=== PATIENT | male | born 1990 | race Caucasian/White ===

== ENCOUNTER 2019-09-14 09:17 | Emergency (ER) | payer OTHER, SELFPAY ==
[2019-09-14 09:32] VITALS: BP 128/73; PULSE 84; RESP 16; TEMP 37.1; O2SAT 100
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
== END 2019-09-14 09:45 | disposition home or self-care (01) ==
PROVIDERS: Emergency Provider Emergency Medicine
DX: J10.1 Influenza due to other identified influenza virus with other respiratory manifestations (principal); J45.909 Unspecified asthma, uncomplicated; K21.9 Gastro-esophageal reflux disease without esophagitis; I10 Essential (primary) hypertension
CPT/HCPCS: 87804; 99213; G0463

== ENCOUNTER 2019-09-22 10:08 | Emergency (ER) | payer OTHER, SELFPAY ==
--- NOTE | ~2019-09-22 | XR_ITS ---
EXAMINATION: XR chest 2V DATE: 09/22/2019 11:24 INDICATION: Smoker presenting with 2 weeks of productive cough TECHNIQUE: PA and lateral views of the chest were obtained. COMPARISON: Chest radiograph dated 07/17/2018 FINDINGS: Multiple scattered tiny calcified granulomata in both lungs, more numerous on the right. No other air space opacities, pulmonary edema, pleural effusion or pneumothorax. The cardiomediastinal silhouette is normal. Visualized bones and soft tissues are unremarkable. IMPRESSION: 1. No acute cardiopulmonary disease. Reviewed, dictated and finalized at location A. [employer] ARCH[employer]
[2019-09-22 10:26] VITALS: BP 146/91; PULSE 64; RESP 20; TEMP 36.4; O2SAT 99
[2019-09-22 10:32] VITALS: PULSE 64; RESP 20; O2SAT 99
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
[2019-09-22] MEDS: ALBUTEROL SULFATE NEB 2.5 MG/3 ML INH INHALATION (11:26)
[2019-09-22] MEDS: IPRATROPIUM BR 0.02% INH SOLN 0.5 MG/2.5 ML VIAL INHALATION (11:27)
[2019-09-22 12:16] VITALS: PULSE 80; RESP 16; O2SAT 98
== END 2019-09-22 12:16 | disposition home or self-care (01) ==
PROVIDERS: Emergency Provider Nurse Practitioner
DX: J45.21 Mild intermittent asthma with (acute) exacerbation (principal); R03.0 Elevated blood-pressure reading, without diagnosis of hypertension; F17.200 Nicotine dependence, unspecified, uncomplicated; K21.9 Gastro-esophageal reflux disease without esophagitis; I10 Essential (primary) hypertension
CPT/HCPCS: 71046; 94640; 99213; G0463

== ENCOUNTER 2019-10-05 18:57 | Emergency (ER) | payer OTHER, SELFPAY ==
--- NOTE | ~2019-10-05 | CT_ITS ---
EXAMINATION: CT abdomen pelvis wo con DATE: 10/05/2019 19:53 INDICATION: Renal stone presenting with right low back pain and hematuria TECHNIQUE: Computed tomography (CT) of the abdomen and pelvis was performed without intravenous contr ast. Automated exposure control and iterative reconstruction technique were employed. The dose-length product was 383.91 mGy-cm. COMPARISON: 06/25/2012 FINDINGS: A few unchanged small calcified and noncalcified granulomata in the bilateral lower lobes along with a few small splenic calcification as are all consistent with old granulomatous disease. Visualized in ferior heart is normal. No pericardial or pleural effusion. Gallbladder not visualized and likely alok gically absent. Liver, pancreas and bilateral adrenal glands are normal. Kidneys and ureters are norm al with no urolithiasis, hydroureteronephrosis or perinephric/ureteral stranding. Bowels including th e appendix are normal. Bladder is normal. No free intraperitoneal gas or fluid. No pathologically enl arged abdominal or pelvic lymphadenopathy. Mild lumbar spondylosis. IMPRESSION: 1. No acute intra-abdominal/pelvic process with normal appendix and no urolithiasis. Reviewed, dictated and finalized at location A. INE [employer]PER IMPRESSION: 1. No acute intra-abdominal/pelvic process with normal appendix and no urolithi asis.
[2019-10-05 19:06] VITALS: BP 156/104; PULSE 54; RESP 17; TEMP 36.7; O2SAT 99
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
[2019-10-05 19:23] LABS: Basophils Absolute Auto 0.1 K/mm3 (0.0-0.1); Basophils Percent Auto 0.5 % (0.2-1.2); Eosinophils Absolute Auto 0.4 K/mm3 (0-0.3); Eosinophils Percent Auto 2.7 % (0-4.4); Hematocrit 41.1 % (42.0-52.0); Hemoglobin 14.2 g/dL (14.0-18.0); Immature Granulocyte Absolute 0.05 K/mm3 (0.00-0.031); Immature Granulocyte Percent A 0.4 % (0-0.5); Lymphocytes Absolute Auto 4.59 K/mm3 (0.9-3.2); Lymphocytes Percent Auto 33.1 % (18.3-44.2); Mean Corpuscular HGB Conc 34.5 g/dl (32-36); Mean Corpuscular Hemoglobin 30.4 pg (26-34); Mean Platelet Volume 10.2 fl (7.4-10.4); Monocytes Absolute Auto 1.3 K/mm3 (0.1-0.6); Monocytes Percent Auto 9.1 % (2.6-8.5); Neutrophils Absolute Auto 7.5 K/mm3 (1.3-6.7); Neutrophils Percent Auto 54.2 % (45.5-73.1); Platelet Count Result 314 k/mm3 (150-375); Red Blood Count 4.67 M/mm3 (4.6-6.20); Red Cell Distribution Width 12.3 % (11.5-14.5); White Blood Count 13.9 K/mm3 (4.5-10.0)
[2019-10-05] MEDS: KETOROLAC 30 MG/ML VIAL (*BKC) IV PUSH (19:24)
[2019-10-05] MEDS: ONDANSETRON INJ 4 MG/2 ML VIAL IV PUSH (19:24)
[2019-10-05] MEDS: LACTATED RINGERS 1,000 ML 999 ML IV CONT (19:25)
[2019-10-05 19:42] LABS: Blood Urea Nitrogen 15 mg/dL (9-20); Calcium 9.5 mg/dL (8.4-10.2); Carbon Dioxide 22 mmol/L (22-30); Chloride 103 mmol/L (98-107); Estimated Glomerular Filt Rate > 60; Glucose 91 mg/dL (75-110); Potassium 3.8 mmol/L (3.4-5.0); Sodium 140 mmol/L (137-145)
--- NOTE | 2019-10-05 20:01 | PC.NURSE ---
Called lab to add on Lipase and Hepatic
[2019-10-05] MEDS: MORPHINE SULFATE 4 MG/ML INJ IV PUSH (20:07)
[2019-10-05 20:11] LABS: Alanine Aminotransferase 41 U/L (4-50); Albumin Level 4.9 g/dL (3.5-5.1); Alkaline Phosphatase 60 U/L (38-126); Aspartate Amino Transferase 39 U/L (17-59); Bilirubin,Total 0.6 mg/dL (0.2-1.3); Lipase 318 U/L (23-300)
[2019-10-05 20:18] LABS: Add Urine Microscopic? YES; Appearance Urine Clear (Clear); Bacteria Urine Trace /hpf; Bilirubin Urine Negative (Negative); Blood Urine Negative (Negative); Color Urine Amber (Yellow); Glucose Urine UA Negative (Negative); Ketones Urine Trace mg/dL (Negative); Leukocyte Esterase Ur Negative LEU/UL (Negative); Mucus Urine Few /lpf; Nitrate Urine Negative (Negative); Protein Urine 1+ mg/dL (Negative); Specific Grav Ur 1.031 (1.001-1.035); WBC Urine 0-3 /hpf
--- NOTE | 2019-10-05 20:55 | PC.NURSE ---
Called lab to add on D-Dimer
[2019-10-05 21:19] LABS: D Dimer 0.27 ug/mL (<0.48)
[2019-10-05 22:08] VITALS: BP 138/77; PULSE 88; RESP 18; O2SAT 98
--- NOTE | 2019-10-12 19:24 | PC.NURSE ---
LATE ENTRY This note is being entered to document information to the patient's record. The following information was omitted on [10/05/19], by [Shelton]. 1L LR finished infusing at 20:20.
== END 2019-10-05 22:27 | disposition home or self-care (01) ==
PROVIDERS: Emergency Medicine; Emergency Provider Emergency Medicine
DX: M54.5 Low back pain (principal); J45.909 Unspecified asthma, uncomplicated; K21.9 Gastro-esophageal reflux disease without esophagitis; I10 Essential (primary) hypertension; Z87.442 Personal history of urinary calculi; F17.290 Nicotine dependence, other tobacco product, uncomplicated; G89.29 Other chronic pain
CPT/HCPCS: 36415; 74176; 80048; 80076; 81001; 83690; 85025; 85380; 96361; 96374; 96375; 99284; J1885; J2270; J2405; J7120

== ENCOUNTER 2019-10-15 18:36 | Emergency (ER) | payer OTHER, SELFPAY ==
[2019-10-15 18:41] VITALS: BP 117/68; PULSE 100; RESP 20; TEMP 37.3; O2SAT 99
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
== END 2019-10-15 19:03 | disposition home or self-care (01) ==
PROVIDERS: Emergency Provider Nurse Practitioner
DX: J02.8 Acute pharyngitis due to other specified organisms (principal); J06.9 Acute upper respiratory infection, unspecified; F17.200 Nicotine dependence, unspecified, uncomplicated; J45.909 Unspecified asthma, uncomplicated; K21.9 Gastro-esophageal reflux disease without esophagitis; I10 Essential (primary) hypertension
CPT/HCPCS: 87081; 87880; 99213; G0463

== ENCOUNTER 2019-10-16 10:32 | Emergency (ER) | payer OTHER, SELFPAY ==
[2019-10-16 10:47] VITALS: BP 131/77; PULSE 95; RESP 17; TEMP 37.7; O2SAT 100
[2019-10-16 10:49] VITALS: O2SAT 100
[2019-10-16] MEDS: ALBUTEROL SULFATE NEB 2.5 MG/0.5 ML INH 5 MG INHALATION (11:05)
[2019-10-16] MEDS: IPRATROPIUM BR 0.02% INH SOLN 0.5 MG/2.5 ML VIAL INHALATION (11:05)
[2019-10-16 11:07] VITALS: PULSE 84; RESP 18
[2019-10-16 11:12] VITALS: PULSE 91; RESP 18
[2019-10-16] MEDS: IBUPROFEN 600 MG TABLET PO (11:24)
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
== END 2019-10-16 11:56 | disposition home or self-care (01) ==
PROVIDERS: Emergency Provider Emergency Medicine
DX: J10.1 Influenza due to other identified influenza virus with other respiratory manifestations (principal); F41.9 Anxiety disorder, unspecified; J45.909 Unspecified asthma, uncomplicated; F31.9 Bipolar disorder, unspecified; K21.9 Gastro-esophageal reflux disease without esophagitis; G40.909 Epilepsy, unspecified, not intractable, without status epilepticus
CPT/HCPCS: 87081; 87804; 87880; 94640; 99283; A9270

== ENCOUNTER 2020-01-14 19:17 | Emergency (ER) | payer SELFPAY ==
[2020-01-14 19:19] VITALS: BP 130/74; PULSE 82; RESP 19; TEMP 37.1; O2SAT 100
== END 2020-01-14 20:34 | disposition left against medical advice (07) ==
LOC: ANHED 20:45
DX: L29.9 Pruritus, unspecified (principal)
CPT/HCPCS: 99199

== ENCOUNTER 2020-01-20 05:24 | Emergency (ER) | payer OTHER, SELFPAY ==
[2020-01-20] VITALS (7 sets, daily range): BP systolic 132–167; BP diastolic 54–87; PULSE 66–82; RESP 12–18; TEMP 36.7; O2SAT 98–100
--- NOTE | ~2020-01-20 | XR_ITS ---
EXAMINATION: XR chest 1V portable DATE: 01/20/2020 06:06 INDICATION: Chest pressure. Shortness of breath. TECHNIQUE: A single frontal view of the chest was obtained. COMPARISON: Chest 2 views 09/22/2019, CT abdomen and pelvis 10/05/2019 FINDINGS: Scattered calcified pulmonary nodules are consistent with old granulomatous disease. No ple ural effusion or pneumothorax. The heart size is normal. IMPRESSION: 1. No acute cardiopulmonary disease. Reviewed, dictated and finalized at location A.
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
[2020-01-20 05:50] LABS: Basophils Absolute Auto 0.1 K/mm3 (0.0-0.1); Basophils Percent Auto 1.2 % (0.2-1.2); Eosinophils Absolute Auto 0.6 K/mm3 (0-0.3); Eosinophils Percent Auto 5.4 % (0-4.4); Hematocrit 47.4 % (42.0-52.0); Hemoglobin 16.3 g/dL (14.0-18.0); Immature Granulocyte Absolute 0.05 K/mm3 (0.00-0.031); Immature Granulocyte Percent A 0.4 % (0-0.5); Lymphocytes Absolute Auto 5.41 K/mm3 (0.9-3.2); Lymphocytes Percent Auto 46.2 % (18.3-44.2); Mean Corpuscular HGB Conc 34.4 g/dl (32-36); Mean Corpuscular Hemoglobin 30.1 pg (26-34); Mean Corpuscular Volume 87.6 fl (80-100); Mean Platelet Volume 9.6 fl (7.4-10.4); Monocytes Absolute Auto 1.2 K/mm3 (0.1-0.6); Monocytes Percent Auto 10.5 % (2.6-8.5); Neutrophils Absolute Auto 4.3 K/mm3 (1.3-6.7); Neutrophils Percent Auto 36.3 % (45.5-73.1); Platelet Count Result 365 k/mm3 (150-375); Red Blood Count 5.41 M/mm3 (4.6-6.20); Red Cell Distribution Width 12.5 % (11.5-14.5); White Blood Count 11.7 K/mm3 (4.5-10.0)
[2020-01-20 06:00] LABS: INR 0.9; Prothrombin Time 12.1 Seconds (11.1-14.7)
[2020-01-20 06:01] LABS: Partial Thromboplastin Time 25.9 SECONDS (22.3-36.8)
[2020-01-20 06:14] LABS: D Dimer 0.27 ug/mL (<0.48)
[2020-01-20 06:56] LABS: Blood Urea Nitrogen 15 mg/dL (9-20); Calcium 9.4 mg/dL (8.4-10.2); Carbon Dioxide 27 mmol/L (22-30); Chloride 106 mmol/L (98-107); Estimated Glomerular Filt Rate > 60; Glucose 109 mg/dL (75-110); Potassium 4.1 mmol/L (3.4-5.0); Sodium 139 mmol/L (137-145)
[2020-01-20 07:08] LABS: Troponin I < 0.012 ng/mL (0.000-0.034)
[2020-01-20 07:58] LABS: Amphetamine Screen Urine Positive (Negative); Barbiturate Screen Urine Negative (Negative); Benzodiazepines Screen Urine Negative (Negative); Cannabinoid Screen Urine Positive (Negative); Cocaine Screen Urine Negative (Negative); Methadone Screen Urine Negative (Negative); Opiate Screen Urine Negative (Negative); Phencyclidine Screen Urine Negative (Negative)
[2020-01-20] MEDS: TRAMADOL HCL 50 MG TABLET PO (08:27)
[2020-01-20 09:13] LABS: Troponin I < 0.012 ng/mL (0.000-0.034)
--- NOTE | 2020-01-20 10:01 | ECG_ITS ---
Measurements Intervals [place] Rate: 85 P: -1 SC: 125 QRS: -13 QRSD: 116 T: 9 QT: 378 QTc: 450 Interpretive Statements SINUS RHYTHM WITH MARKED SINUS ARRHYTHMIA INTRAVENTRICULAR CONDUCTION DELAY BORDERLINE T WAVE ABNORMALITY- INFERIOR LEADS BASELINE ARTIFACT- I, II, III, AVR, AVF, V2 BORDERLINE ECG Electronically Signed On 01-20-2020 10:10:38 CDT by Homero Chacon D.O.
== END 2020-01-20 10:39 | disposition home or self-care (01) ==
PROVIDERS: Emergency Medicine; Emergency Provider Emergency Medicine
DX: R07.89 Other chest pain (principal); F15.90 Other stimulant use, unspecified, uncomplicated; K21.9 Gastro-esophageal reflux disease without esophagitis; I10 Essential (primary) hypertension; Z87.442 Personal history of urinary calculi; F17.290 Nicotine dependence, other tobacco product, uncomplicated; I45.9 Conduction disorder, unspecified; R94.31 Abnormal electrocardiogram [ECG] [EKG]; J45.909 Unspecified asthma, uncomplicated
CPT/HCPCS: 36415; 71045; 80048; 80307; 84484; 85025; 85380; 85610; 85730; 93005; 99284; A9270

== ENCOUNTER 2020-02-05 19:29 | Emergency (ER) | payer OTHER, SELFPAY ==
[2020-02-05 19:32] VITALS: BP 133/83; PULSE 117; RESP 16; O2SAT 16
[2020-02-05] MEDS: SODIUM CHLORIDE 0.9% IV 1,000 ML 999 ML IV CONT (19:56)
[2020-02-05 20:05] LABS: Basophils Absolute Auto 0.1 K/mm3 (0.0-0.1); Basophils Percent Auto 0.8 % (0.2-1.2); Eosinophils Absolute Auto 0.3 K/mm3 (0-0.3); Eosinophils Percent Auto 2.4 % (0-4.4); Hemoglobin 17.1 g/dL (14.0-18.0); Immature Granulocyte Absolute 0.07 K/mm3 (0.00-0.031); Immature Granulocyte Percent A 0.5 % (0-0.5); Lymphocytes Percent Auto 39.1 % (18.3-44.2); Mean Corpuscular HGB Conc 35.6 g/dl (32-36); Mean Corpuscular Hemoglobin 30.4 pg (26-34); Mean Corpuscular Volume 85.4 fl (80-100); Mean Platelet Volume 9.8 fl (7.4-10.4); Monocytes Absolute Auto 0.8 K/mm3 (0.1-0.6); Monocytes Percent Auto 6.2 % (2.6-8.5); Neutrophils Absolute Auto 6.9 K/mm3 (1.3-6.7); Platelet Count Result 393 k/mm3 (150-375); Red Blood Count 5.62 M/mm3 (4.6-6.20); Red Cell Distribution Width 12.3 % (11.5-14.5); White Blood Count 13.6 K/mm3 (4.5-10.0)
[2020-02-05 20:16] LABS: Partial Thromboplastin Time 24.4 SECONDS (22.3-36.8); Prothrombin Time 12.6 Seconds (11.1-14.7)
[2020-02-05 20:17] LABS: Alanine Aminotransferase 27 U/L (4-50); Albumin Level 5.3 g/dL (3.5-5.1); Alkaline Phosphatase 66 U/L (38-126); Aspartate Amino Transferase 30 U/L (17-59); Bilirubin,Total 0.5 mg/dL (0.2-1.3); Blood Urea Nitrogen 11 mg/dL (9-20); Calcium 10.5 mg/dL (8.4-10.2); Carbon Dioxide 24 mmol/L (22-30); Chloride 100 mmol/L (98-107); Estimated Glomerular Filt Rate > 60; Glucose 105 mg/dL (75-110); Lipase 130 U/L (23-300); Potassium 3.5 mmol/L (3.4-5.0); Sodium 138 mmol/L (137-145)
[2020-02-05 20:21] LABS: D Dimer 0.27 ug/mL (<0.48)
[2020-02-05 20:29] LABS: Troponin I < 0.012 ng/mL (0.000-0.034)
[2020-02-05 20:33] VITALS: BP 129/63; PULSE 79; RESP 18
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
[2020-02-05 20:56] LABS: Amphetamine Screen Urine Negative (Negative); Barbiturate Screen Urine Negative (Negative); Benzodiazepines Screen Urine Negative (Negative); Cannabinoid Screen Urine Positive (Negative); Cocaine Screen Urine Negative (Negative); Methadone Screen Urine Negative (Negative); Opiate Screen Urine Negative (Negative); Phencyclidine Screen Urine Negative (Negative)
[2020-02-05 21:33] VITALS: BP 138/97; PULSE 69; RESP 18; O2SAT 99
[2020-02-05 22:40] LABS: Troponin I < 0.012 ng/mL (0.000-0.034)
[2020-02-05 23:40] VITALS: BP 124/74; PULSE 74; RESP 19; TEMP 36.8; O2SAT 100
== END 2020-02-05 23:41 | disposition home or self-care (01) ==
PROVIDERS: Emergency Medicine Emergency Medical Services; Emergency Provider Emergency Medicine; PCP Physician Assistant
DX: R00.2 Palpitations (principal); J45.909 Unspecified asthma, uncomplicated; K21.9 Gastro-esophageal reflux disease without esophagitis; Z87.442 Personal history of urinary calculi; F17.290 Nicotine dependence, other tobacco product, uncomplicated; I47.2 Ventricular tachycardia; I10 Essential (primary) hypertension
CPT/HCPCS: 36415; 80053; 80307; 83690; 84484; 85025; 85380; 85610; 85730; 96360; 99284; J7030

== ENCOUNTER 2020-04-27 09:12 | Emergency (ER) | payer OTHER, SELFPAY ==
--- NOTE | ~2020-04-27 | XR_ITS ---
EXAMINATION: XR chest 2V 04/27/2020 09:40 INDICATION: Cough, shortness of breath and wheezing PROCEDURE: 2 view chest COMPARISON: No prior studies for comparison. FINDINGS: The lungs are clear. The cardiomediastinal silhouette is within normal limits. There are no pleural effusions. There is no pneumothorax suspected. IMPRESSION: 1: NO ACUTE CARDIOPULMONARY DISEASE. Reviewed, dictated and finalized at location A.
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
[2020-04-27 09:20] VITALS: BP 130/74; PULSE 50; RESP 16; TEMP 36.5; O2SAT 100
[2020-04-27] MEDS: ALBUTEROL SULFATE NEB 2.5 MG/3 ML INH INHALATION (09:39)
[2020-04-27] MEDS: IPRATROPIUM BR 0.02% INH SOLN 0.5 MG/2.5 ML VIAL INHALATION (09:39)
[2020-04-27 09:40] VITALS: PULSE 50; RESP 16; O2SAT 100
[2020-04-27 10:03] VITALS: PULSE 60; RESP 16; O2SAT 100
== END 2020-04-27 10:13 | disposition home or self-care (01) ==
PROVIDERS: Emergency Provider Nurse Practitioner Family; PCP Physician Assistant
DX: J45.901 Unspecified asthma with (acute) exacerbation (principal); F17.200 Nicotine dependence, unspecified, uncomplicated; K21.9 Gastro-esophageal reflux disease without esophagitis; I10 Essential (primary) hypertension
CPT/HCPCS: 71046; 87081; 87804; 87880; 94640; 99213; G0463

== ENCOUNTER 2020-08-26 15:29 | Observation (INO) | payer OTHER, SELFPAY ==
--- NOTE | ~2020-08-26 | MR_ITS ---
EXAMINATION: MR brain/brain stem wo/w con DATE: 08/27/2020 10:32 INDICATION: Anisocoria with dilated right pupil. TECHNIQUE: Magnetic resonance imaging (MRI) of the brain and brainstem was performed without and with 20 mL MultiHance intravenous contrast. Sequences included sagittal and axial T1-weighted FSE, axial diffusion-weighted FS EPI, axial T2*-weighted GRE, axial T2-weighted FLAIR Propeller, and axial T2-we ighted Propeller. Postcontrast sequences included axial and coronal T1-weighted FSE. Apparent diffusi on coefficient (ADC) maps were created. COMPARISON: Brain MRI 07/17/2017, head CT 08/26/2020 FINDINGS: There is no intracranial hemorrhage, acute infarction, or abnormal intracranial mass lesion . The ventricles are normal in size. There is a mucous retention cyst in left maxillary sinus. There is mild mucosal thickening in the ethmoid sinuses. The orbits are normal. The mastoid air cells are n ormal. IMPRESSION: 1. Normal brain. Reviewed, dictated and finalized at location B. RATING CONSULTANT IMPRESSION: 1. Normal brain.
--- NOTE | ~2020-08-26 | CT_ITS ---
EXAMINATION: CT cervical spine wo con DATE: 08/26/2020 16:45 INDICATION: Headache TECHNIQUE: Computed tomography (CT) of the cervical spine was performed without intravenous contrast. Automated exposure control and iterative reconstruction technique were employed. The dose-length pro duct was 384.32 mGy-cm. COMPARISON: Cervical spine radiographs dated 01/14/2019 FINDINGS: 7 nonrib-bearing cervical segments. Likely transitional T1 segment with bilateral hypoplastic riblets . Minimal cervical thoracic dextrocurvature which may be positional. Sagittal alignment is normal. Ve rtebral body and disc heights are normal. No fracture. No significant facet or uncovertebral osteoart hritis. The central canal and neural foramina are patent throughout. Dental caries along the posterol ateral aspect of the posterior most right maxillary molar with associated periapical cyst with nearly subpleural corticated margin projecting into the left maxillary sinus. Cervical soft tissues are unr emarkable. A few tiny left apical nodules consistent with old granulomatous disease. IMPRESSION: 1. 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 Otherwise unremarkable cervical spine with no acute osseous abnormality. 2. Periapical cyst and dental caries at the posterior most left maxillary molar. Reviewed, dictated and finalized at location A. CTION MOLDING PROCESS TECHNICIAN IMPRESSION: 1. 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 Otherwise unrem arkable cervical spine with no acute osseous abnormality. 2. Periapical cyst and dental caries at the posterior most left maxillary molar .
--- NOTE | ~2020-08-26 | US_ITS ---
US breast LT limited DATE: 08/27/2020 10:51 INDICATION: Left breast lump TECHNIQUE: High-resolution ultrasound imaging and color flow imaging targeted to the left breast lump at 8:00 3 cm from nipple COMPARISON: None FINDINGS: There is a 9 x 14 x 14.4 superficial heterogeneous mass with mixed soft tissue and fat dens ity, with internal vascularity on color flow imaging. Differential diagnosis includes lipoma, hamart christina and less likely malignancy. Ultrasound guided biopsy is recommended for tissue diagnosis. IMPRESSION: BIRADS Category 4a: Suspicious abnormality; biopsy should be considered RECOMMENDATION: Ultrasound guided biopsy of 8:[address] Corea telephoned the report and ultrasound guided biopsy recommendation to [facility] Nurse Argelia on 08/27/2020 at 1105 hours. Reviewed, dictated and finalized at Location [facility]. Reviewed, dictated and finalized at location A. CULTURE CONSULTANT IMPRESSION: BIRADS Category 4a: Suspicious abnormality; biopsy should be consi dered RECOMMENDATION: Ultrasound guided biopsy of 8:[address] Corea telephoned the report and ultrasound guided biopsy recommendation to [facility] Nurse Argelia on 08/27/2020 at 1105 hours.
--- NOTE | ~2020-08-26 | US_ITS ---
EXAMINATION: US carotid duplex BI DATE: 08/27/2020 10:48 INDICATION: Right eye pressure. Dilated pupil. TECHNIQUE: Grayscale, color Doppler, and pulsed Doppler images of the cervical carotid arteries were obtained. The degree of vessel stenosis is placed in one of the following categories: normal, <50%, 5 0-69%, >=70% but less than near-occlusion, near-occlusion, or total occlusion. Note that percent sten osis relative to normal distal artery lumen diameter is indirectly measured from velocity measurement s as described by Edgar, et al. Radiology 2003; 229:340-346. COMPARISON: None. FINDINGS: RIGHT: The right common carotid artery (CCA) peak systolic velocity (PSV) is 156 cm/s. The right internal ca rotid artery (ICA) PSV is 114 cm/s. The right ICA end-diastolic velocity (EDV) is 33 cm/s. The right ICA/CCA PSV ratio is 0.7. Grayscale and color Doppler images demonstrate no appreciable stenosis or p laque in the ICA. The external carotid artery (ECA) PSV is 156 cm/s. There is antegrade flow in the r ight vertebral artery. LEFT: The left CCA PSV is 162 cm/s. The left ICA PSV is 134 cm/s. The left ICA EDV is 24 cm/s. The left ICA /CCA PSV ratio is 0.8. Grayscale and color Doppler images of straight no appreciable stenosis or plaq ue in the ICA. The ECA PSV is 159 cm/s. There is antegrade flow in the left vertebral artery. IMPRESSION: 1. No evident plaque or stenosis in the right internal carotid artery. 2. No evident plaque or stenosis in the left internal carotid artery. Reviewed, dictated and finalized at location A. STANT MECHANIC
--- NOTE | ~2020-08-26 | CT_ITS ---
EXAMINATION: CT brain wo con DATE: 08/26/2020 16:45 INDICATION: Headache TECHNIQUE: Computed tomography (CT) of the head was performed without intravenous contrast. Sagittal and coronal reconstructions were performed. The mA was adjusted according to patient size. Iterative reconstruction technique was employed. The dose-length product was 605.33 mGy-cm. COMPARISON: head CT dated 03/06/2013 and brain MR dated 07/17/2017 FINDINGS: No acute intracranial hemorrhage, acute infarction or abnormal extra axial fluid collection. Ventricl es are normal and symmetric. No mass/mass effect. Mild mucoperiosteal thickening in the visualized bi lateral ethmoid and maxillary sinuses. The orbits and mastoid air cells are normal. IMPRESSION: 1. Normal brain. No acute intracranial process. Reviewed, dictated and finalized at location A. MENT CONTROL ASSISTANT
[2020-08-26 15:31] VITALS: BP 165/85; PULSE 75; RESP 18; TEMP 36.3; O2SAT 100
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
[2020-08-26 16:36] LABS: Basophils Absolute Auto 0.1 K/mm3 (0.0-0.1); Basophils Percent Auto 1.2 % (0.2-1.2); Eosinophils Absolute Auto 0.5 K/mm3 (0-0.3); Eosinophils Percent Auto 5.2 % (0-4.4); Immature Granulocyte Absolute 0.03 K/mm3 (0.00-0.031); Immature Granulocyte Percent A 0.3 % (0-0.5); Lymphocytes Absolute Auto 3.62 K/mm3 (0.9-3.2); Lymphocytes Percent Auto 37.9 % (18.3-44.2); Mean Corpuscular HGB Conc 35.7 g/dl (32-36); Mean Corpuscular Hemoglobin 30.8 pg (26-34); Mean Corpuscular Volume 86.2 fl (80-100); Mean Platelet Volume 9.8 fl (7.4-10.4); Monocytes Absolute Auto 0.9 K/mm3 (0.1-0.6); Monocytes Percent Auto 9.6 % (2.6-8.5); Neutrophils Absolute Auto 4.4 K/mm3 (1.3-6.7); Neutrophils Percent Auto 45.8 % (45.5-73.1); Platelet Count Result 328 k/mm3 (150-375); Red Blood Count 4.87 M/mm3 (4.6-6.20); Red Cell Distribution Width 11.7 % (11.5-14.5); White Blood Count 9.6 K/mm3 (4.5-10.0)
[2020-08-26 16:45] LABS: Alanine Aminotransferase 21 U/L (4-50); Albumin Level 4.6 g/dL (3.5-5.1); Alkaline Phosphatase 61 U/L (38-126); Anion Gap 6 mmol/L (8-16); Aspartate Amino Transferase 30 U/L (17-59); Bilirubin,Total 0.5 mg/dL (0.2-1.3); Blood Urea Nitrogen 13 mg/dL (9-20); Calcium 9.8 mg/dL (8.4-10.2); Carbon Dioxide 29 mmol/L (22-30); Chloride 102 mmol/L (98-107); Estimated CRCL calculation 125 ml/min; Estimated Glomerular Filt Rate > 60; Glucose 103 mg/dL (75-110); Potassium 3.8 mmol/L (3.4-5.0); Sodium 137 mmol/L (137-145)
[2020-08-26 17:15] LABS: Prothrombin Time 13.6 Seconds (11.1-14.7)
[2020-08-26 17:16] LABS: Partial Thromboplastin Time 27.3 SECONDS (22.3-36.8)
[2020-08-26] MEDS: diphenhydrAMINE HCl INJ 50 MG/ML VIAL 25 MG IV PUSH (17:19)
[2020-08-26] MEDS: SODIUM CHLORIDE 0.9% IV 1,000 ML 999 ML IV CONT (17:19)
[2020-08-26] MEDS: METOCLOPRAMIDE HCL INJ 10 MG/2 ML VIAL IV PUSH (17:19)
[2020-08-26] MEDS: KETOROLAC 30 MG/ML VIAL (*BKC) IV PUSH (17:19)
[2020-08-26 19:42] VITALS: BP 137/77; PULSE 64; RESP 16; TEMP 37.1; O2SAT 97
[2020-08-26] MEDS: LORazepam INJ (*CRX) 2 MG/ML VIAL 1 MG IV PUSH (20:25)
[2020-08-26 20:58] VITALS: BMI 31.0
--- NOTE | 2020-08-26 21:19 | ADMGEN ---
This patient, Rashard Morrow, was admitted to [facility]. Patient/family oriented to hospital policies and general routines including ID bracelet, bed and alarms, visiting hours, pain management, procedures, bathroom and other care routines, personal items, smoking policy, room service/diet, and visiting hours. Information on how to activate the Rapid Response Team has been discussed. Patient/Family are encouraged to report perceived risks to care and to ask questions if they do not understand what they are told or what they should do.
[2020-08-26 22:00] VITALS: BP 132/61; PULSE 62; RESP 18; TEMP 36.7; O2SAT 99
--- NOTE | 2020-08-26 22:37 | PM.IMHP ---
H&P: HPI History of Present Illness Date/Time: 08/26/20 22:37 Chief Complaint: Dilated pupil Narrative: Rashard Morrow is a 29 year old male behind his right eye. The patient did not lose any vision but he could tell a difference in his right eye he said there was pressure to the right side of his head and behind his right eye. His pupil was noted to be dilated and sluggish. At this time both of his pupils are equal reactive to light nausea neuro is are within normal limits. Patient stated that he has been very anxious and and that he is concerned about a nodule that he found to his left breast area and was supposed to have it worked up but no risk gotten back with him. The patient stated that he has been having symptoms for 2 weeks and it has increased over the last 3 days. He had no numbness or tingling or facial droop. No difficulty swallowing no nausea no photophobia he has no history of any migraines. He has had a history of seizures in the past any admits that he uses marijuana and has had 2-3 seizures in his lifetime but was taken off of his seizure medicine due to lack of seizures. He now uses marijuana. Said he has not had any seizures since she uses marijuana. Was also noted in previous ER visits that the patient used amphetamines. The patient has history of having palpitations paroxysmal atrial tachycardia NPH TS. The patient has had a cardiac ablation in the past is on propanolol. However the patient is not having any palpitations at this time. The patient complained of having some back pain in the emergency room he was given Toradol. Patient stated that it made him even more anxious. I spoke with my collaborative concerning the patient's condition with his eye. My collaborative suggested that the patient be transferred to another facility. However ED provider did call [facility] concerning the patient's I and it was recommended that the patient be seen outpatient any did not need any workup in patient. My collaborative than a septic the admission. Intracranial process per Radiology. Cervical spine CT was read as transitional T1 segments with bilateral hypoplastic related otherwise unremarkable cervical spine.. Apical cyst and dental caries at the posterior most left maxillary molar. IV Tylenol, IV Toradol, IV fluids, Benadryl, Reglan, and Ativan in the emergency room. Neurology has agreed to consult on the patient recommended that the patient have MRI. Patient is being admitted to observation on date of service of 08/26/2019 Review of Systems Review of Systems: All systems reviewed & are unremarkable except as noted in HPI and below Constitutional: Constitutional: Reports as per HPI and Reports no additional constitutional complaints Eyes: Eyes: Reports as per HPI and Reports no additional eye complaints ENT: Reports system reviewed and no additional complaints, except as documented and Reports Normal hearing present Cardiovascular: Cardiovascular: Reports no additional cardiovascular complaints Respiratory: Respiratory: Reports no additional respiratory complaints and Reports no additional respiratory complaints Gastrointestinal: Gastrointestinal: Reports as per HPI and Reports no additional gastrointestinal complaints Musculoskeletal: Musculoskeletal: Reports no additional musculoskeletal complaints Integumentary/Breasts: Skin/Breast: Reports system reviewed and no additional complaints, except as docu and Reports as per HPI Neurologic: Reports system reviewed and no additional complaints, except as documented, Reports as per HPI and Reports Normal hearing present Psychiatric: Psychiatric: Reports no additional psychiatric complaints and Reports as per HPI Endocrine: Endocrine: Reports no additional endocrine complaints Hematologic/Lymphatic: Hematologic/Lymphatic: Reports no additional hematologic/lymphatic complaints Allergic/Immunologic: Allergic/Immunologic: Reports no additional allergic/immunologic complaints
[2020-08-27] VITALS: BP 134/74; PULSE 74; RESP 18; TEMP 36.7; O2SAT 100
--- NOTE | 2020-08-27 | ECHO_ITS ---
Patient Info Name: Rashard Morrow Age: 29 years : 1990 Gender: Male Ht: 71 in Wt: 222 lbs BSA: 2.27 m2 HR: 94 bpm BP: 118 / 91 mmHg Technical Quality: Good Exam Date: 08/27/2020 8:27 AM Exam Location: [facility] Patient Status: Inpatient Admit Date: 08/26/2020 Staff Ordering Physician: Gela Vicente NP Wiring Technician: Kathleen Monique RDCS Attending Provider: Tesha Louis MD Referring Physician: Jules ALEJANDRA; Exam Type: CA echo dop bubble study w con Study Info Indications - pupil inequality Complete two-dimensional, color flow and Doppler transthoracic echocardiogram is performed with contrast to opacify the left ventricle and to improve the deliniation of the left ventricle endocardial borders. Complete two-dimensional, color flow and Doppler transthoracic echocardiogram is performed with agitated saline. Contrast/Agitated Saline Contrast/Ag. Saline: Agitated Saline Amount: 30.00 ml Existing IV Access: Yes IV Access Condition: patent with no signs of infiltration Contrast/Ag. Saline: Definity Amount: 1.00 ml Existing IV Access: Yes IV Access Condition: patent with no signs of infiltration Summary 1. Left ventricular systolic function is hyperdynamic, estimated at 65-70%. 2. Intact interatrial septum visualized by agitated saline imaging. 3. There is trace tricuspid valve regurgitation. 4. No pulmonary hypertension, estimated pulmonary arterial systolic pressure is 32 mmHg. Left Ventricle Left ventricular chamber dimension is normal. Left ventricular systolic function is hyperdynamic, estimated at 65-70%. There is no increased left ventricular wall thickness. Left ventricular septal wall motion is normal. The left ventricular diastolic function is normal. Right Ventricle Right ventricular chamber dimension is normal. Right ventricular systolic function is normal. Left Atria Left atrial chamber dimension is normal. Right Atria Right atrial chamber dimension is normal. Atrial Septum Intact interatrial septum visualized by agitated saline imaging. Aortic Valve The aortic valve is trileaflet. There is no aortic valve sclerosis. There is no aortic valve stenosis. There is no aortic valve regurgitation. Pulmonic Valve The pulmonic valve is normal. There is no pulmonic valve stenosis. There is no pulmonic regurgitation. Mitral Valve The mitral valve has normal leaflets. There is no mitral valve stenosis. There is no mitral valve regurgitation. Tricuspid Valve The tricuspid valve leaflets are normal. There is no significant tricuspid valve stenosis. There is trace tricuspid valve regurgitation. No pulmonary hypertension, estimated pulmonary arterial systolic pressure is 32 mmHg. Pericardium/Pleural The pericardium appears normal. There is no pericardial effusion. Inferior Vena Cava Normal inferior vena cava with >50% collapse upon inspiration consistent with normal right atrial pressure, 5 mmHg. Aorta The aortic root size at the sinus of Valsalva is normal. The prox ascending aorta size is normal. Left Ventricular Outflow Tract Name Value Normal LVOT 2D
[2020-08-27] MEDS: predniSONE 40 MG, predniSONE 10 MG 50 MG PO ×3 (00:43→09:06)
[2020-08-27] MEDS: ZOLPIDEM TARTRATE (*CRX) 5 MG TABLET 10 MG PO (00:43)
[2020-08-27 04:09] LABS: Add Urine Microscopic? NO; Appearance Urine Clear (Clear); Bilirubin Urine Negative (Negative); Blood Urine Negative (Negative); Color Urine Yellow (Yellow); Glucose Urine UA Negative (Negative); Ketones Urine Negative (Negative); Leukocyte Esterase Ur Negative LEU/UL (NEGATIVE); Nitrate Urine Negative (Negative); Protein Urine Negative (Negative); Specific Grav Ur 1.014 (1.001-1.035); Urobilinogen Urine Negative mg/dL (<2.0)
[2020-08-27 04:20] LABS: Amphetamine Screen Urine Negative (Negative); Barbiturate Screen Urine Negative (Negative); Benzodiazepines Screen Urine Negative (Negative); Cannabinoid Screen Urine Positive (Negative); Cocaine Screen Urine Negative (Negative); Methadone Screen Urine Negative (Negative); Opiate Screen Urine Negative (Negative); Phencyclidine Screen Urine Negative (Negative)
[2020-08-27 05:42] LABS: Basophils Percent Auto 0.6 % (0.2-1.2); Eosinophils Absolute Auto 0.1 K/mm3 (0-0.3); Eosinophils Percent Auto 0.9 % (0-4.4); Immature Granulocyte Absolute 0.03 K/mm3 (0.00-0.031); Immature Granulocyte Percent A 0.4 % (0-0.5); Lymphocytes Absolute Auto 1.15 K/mm3 (0.9-3.2); Lymphocytes Percent Auto 16.6 % (18.3-44.2); Mean Corpuscular HGB Conc 34.9 g/dl (32-36); Mean Corpuscular Hemoglobin 30.5 pg (26-34); Mean Corpuscular Volume 87.4 fl (80-100); Mean Platelet Volume 9.7 fl (7.4-10.4); Monocytes Absolute Auto 0.2 K/mm3 (0.1-0.6); Monocytes Percent Auto 2.6 % (2.6-8.5); Neutrophils Absolute Auto 5.5 K/mm3 (1.3-6.7); Neutrophils Percent Auto 78.9 % (45.5-73.1); Platelet Count Result 306 k/mm3 (150-375); Red Blood Count 4.92 M/mm3 (4.6-6.20); Red Cell Distribution Width 11.9 % (11.5-14.5); White Blood Count 6.9 K/mm3 (4.5-10.0)
[2020-08-27 05:58] LABS: CRP < 0.5 mg/dL (<1.0); Lactate Dehydrogenase 389 U/L (313-618)
[2020-08-27 06:00] VITALS: BP 118/91; PULSE 64; RESP 20; TEMP 36.2; O2SAT 99
[2020-08-27 07:05] LABS: Thyroid Stimulating Hormone Reflex 0.621 uIU/mL (0.465-4.68)
[2020-08-27 08:00] VITALS: BP 147/72; PULSE 60; RESP 16; TEMP 36.7; O2SAT 100
[2020-08-27] MEDS: PERFLUTREN LIPID MICROSPHERES 1.5 ML VIAL DILUTED TO 10 ML TOTAL VOLUME IV PUSH (09:04)
[2020-08-27] MEDS: diphenhydrAMINE HCl INJ 50 MG/ML VIAL IV PUSH (09:04)
[2020-08-27 09:05] VITALS: PULSE 92
[2020-08-27] MEDS: diphenhydrAMINE HCl INJ 50 MG/ML VIAL (09:05)
[2020-08-27] MEDS: PROPRANOLOL HCL 10 MG TABLET PO ×2 (09:05→15:30)
[2020-08-27] MEDS: LORazepam (*CRX) 1 MG TABLET PO (10:00)
--- NOTE | 2020-08-27 11:31 | PC.NURSE ---
Entry for 1000- Pt C/Ofeeling very anxious and requesting medication to help. Dr. Shirley notified and orders noted. Ativan 1 mg given po per order.
--- NOTE | 2020-08-27 11:33 | PC.NURSE ---
1010 - Pt off floor for MRI
--- NOTE | 2020-08-27 11:33 | PC.NURSE ---
1111 - Pt returned to room
[2020-08-27] MEDS: buPROPion HCL 75 MG TABLET 150 MG PO (13:04)
[2020-08-27] MEDS: LORazepam INJ (*CRX) 2 MG/ML VIAL 1 MG IV PUSH (13:40)
[2020-08-27] MEDS: diphenhydrAMINE HCl INJ 50 MG/ML VIAL 25 MG IV PUSH (13:45)
[2020-08-27 14:00] VITALS: PULSE 107; RESP 16; TEMP 36.7; O2SAT 100
--- NOTE | 2020-08-27 15:21 | PM.DS ---
DS: Admitting Diagnosis Admitting Diagnosis Admitting Diagnosis: Headache (1) Pupillary inequality: Code(s): - Anisocoria Status: Acute Assessment and Plan: Patient's pupils are not equal and reactive to light. Neurology has been consulted. Patient has no visual disturbances. According to ED morgan had been called for ophthalmology and suggested that the patient be seen outpatient govea. Otherwise neuro Regina intact. MRI will be ordered for tomorrow. Echo check carotid (2) History of seizure: Code(s): - Personal history of other specified conditions Status: Acute Assessment and Plan: No longer has any seizures. (3) Asthma: Qualifiers: Asthma complication type: unspecified Asthma persistence: unspecified Asthma severity: unspecified severity Qualified Code(s): J45.909 - Unspecified asthma, uncomplicated Code(s): - Unspecified asthma, uncomplicated Status: Acute Assessment and Plan: Continue with inhaler (4) History of substance abuse: Code(s): - Other psychoactive substance abuse, in remission Status: Acute Assessment and Plan: UDS pending (5) Chronic anxiety: Code(s): - Anxiety disorder, unspecified Status: Acute DS: Discharge Diagnosis Discharge Diagnosis (1) Headache: Qualifiers: Headache chronicity pattern: acute headache Headache type: unspecified Intractability: intractable Qualified Code(s): R51.9 - Headache, unspecified Code(s): R51.9 - Headache, unspecified Status: Acute (2) Pupillary inequality: Code(s): H57.02 - Anisocoria Status: Acute (3) Current every day nicotine vaping: Code(s): Z72.0 - Tobacco use Status: Acute (4) GERD (gastroesophageal reflux disease): Qualifiers: Esophagitis presence: esophagitis presence not specified Qualified Code(s): K21.9 - Gastro-esophageal reflux disease without esophagitis Code(s): K21.9 - Gastro-esophageal reflux disease without esophagitis Status: Acute (5) Subcutaneous mass of back: Code(s): R22.2 - Localized swelling, mass and lump, trunk Status: Acute (6) Subcutaneous mass: Code(s): R22.9 - Localized swelling, mass and lump, unspecified Status: Acute (7) Chronic back pain: Qualifiers: Back pain location: low back pain Back pain laterality: midline Sciatica presence: without sciatica Qualified Code(s): M54.5 - Low back pain; G89.29 - Other chronic pain Code(s): M54.9 - Dorsalgia, unspecified; G89.29 - Other chronic pain Status: Acute (8) History of substance abuse: Code(s): F19.11 - Other psychoactive substance abuse, in remission Status: Acute (9) Asthma: Qualifiers: Asthma severity: unspecified severity Asthma persistence: unspecified Asthma complication type: unspecified Qualified Code(s): J45.909 - Unspecified asthma, uncomplicated Code(s): J45.909 - Unspecified asthma, uncomplicated Status: Acute (10) Chronic anxiety: Code(s): F41.9 - Anxiety disorder, unspecified Status: Acute (11) Breast nodule: Code(s): N63.0 - Unspecified lump in unspecified breast Status: Acute DS: Summary Hospital Course Reason for hospitalization: Head ache Hospital Course: Rashard Morrow is a 29 year old male behind his right eye. The patient did not lose any vision but he could tell a difference in his right eye he said there was pressure to the right side of his head and behind his right eye. His pupil was noted to be dilated and sluggish. At that time both of his pupils were equal reactive to light nausea neuro is are within normal limits. Patient stated that he has been very anxious and and that he is concerned about a nodule that he found to his left breast area and was supposed to have it worked up but no risk gotten back with him.He has been having symptoms for 2 weeks and it has
[2020-08-27 15:30] VITALS: PULSE 107
--- NOTE | 2020-08-27 16:04 | PC.NURSE ---
1350- Pt reports that still very anxious and requesting something to help him relax. Dr. Shirley notified and came to see patient. Orders noted for Ativan and Benadryl.
--- NOTE | 2020-08-27 16:05 | PC.NURSE ---
1440 - Pt reports that Ativan helped his anxiety level. Plan to D/C pt to home with driving.
== END 2020-08-27 16:15 | disposition home or self-care (01) ==
LOC: ANHED 20:41 → ANHCPC 20:45
PROVIDERS: Nurse Practitioner; Admitting Provider Internal Medicine; Emergency Provider Nurse Practitioner; Visit Provider Internal Medicine
DX: H57.02 Anisocoria (principal); R51.9 Headache, unspecified; N63.24 Unspecified lump in the left breast, lower inner quadrant; J45.909 Unspecified asthma, uncomplicated; F41.9 Anxiety disorder, unspecified; F31.9 Bipolar disorder, unspecified; K21.9 Gastro-esophageal reflux disease without esophagitis; F19.11 Other psychoactive substance abuse, in remission; F17.290 Nicotine dependence, other tobacco product, uncomplicated; F12.90 Cannabis use, unspecified, uncomplicated; Z87.898 Personal history of other specified conditions
CPT/HCPCS: 36415; 70450; 70553; 72125; 76642; 80053; 80307; 81003; 83615; 83735; 84443; 85025; 85610; 85730; 86140; 93880; 96361; 96374; 96375; 96376; 99285; A9270; A9577; C8929; G0378; J0131; J1200; J1885; J2060; J2765; J7030; J7512; Q9957

== ENCOUNTER 2020-10-12 09:05 | Outpatient (CLI) | payer OTHER, SELFPAY ==
--- NOTE | ~2020-10-12 | MMUS_ITS ---
EXAMINATION: MM diagnostic mammo unilat LT, US breast LT limited HISTORY: Left breast lump TECHNIQUE: Digital MLO and cc views of left breast and comparison MLO view of right breast. CAD camilo sis was submitted and interpreted. High resolution targeted left breast ultrasound was performed at 8 :00 3 cm from nipple. COMPARISON: 08/27/2020 Limited left breast ultrasound BREAST PARENCHYMAL COMPOSITION: The breasts are almost entirely fatty. FINDINGS: MAMMOGRAPHIC FINDINGS: No mammographic mass, architectural distortion, calcification, skin thickening or retraction is detec nay. Both breasts appear almost entirely fatty. ULTRASOUND: Stable heterogeneous hyperechoic approximately 9 x 13.5 mm area is noted. Clinical complaint at 8:00 3 cm from the nipple, unchanged since 08/27/2020. The mammographic and sonographic features are consistent with benign fatty tumor, most likely a benig n lipoma. IMPRESSION: 1. No mammographic evidence of malignancy; benign lipoma 2. No further evaluation is required BI-RADS Category 2: Benign finding(s). Reviewed, dictated and finalized at location A. ZINE DESIGNER IMPRESSION: 1. No mammographic evidence of malignancy; benign lipoma 2. No further evaluation is required BI-RADS Category 2: Benign finding(s).
== END 2020-10-12 09:06 | disposition home or self-care (01) ==
DX: N63.20 Unspecified lump in the left breast, unspecified quadrant (principal)
CPT/HCPCS: 76642; 77065

== ENCOUNTER 2021-01-24 11:45 | Emergency (ER) | payer OTHER, SELFPAY ==
--- NOTE | ~2021-01-24 | XR_ITS ---
EXAMINATION: XR knee LT min 4V DATE: 01/24/2021 12:30 INDICATION: Left knee pain TECHNIQUE: Four views of the left knee were obtained. COMPARISON: 03/23/2009 FINDINGS: Alignment is normal. No fracture or osteochondral lesion. Joint spaces are normal with no e rosions. No joint effusion/synovitis. There is marked prepatellar soft tissue swelling. IMPRESSION: 1. Prepatellar soft tissue swelling without acute osseous abnormality. Reviewed, dictated and finalized at location A.
[2021-01-24 11:53] VITALS: BP 137/73; PULSE 77; RESP 16; TEMP 37.2; O2SAT 100
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
== END 2021-01-24 13:03 | disposition home or self-care (01) ==
PROVIDERS: Emergency Provider Nurse Practitioner
DX: M70.42 Prepatellar bursitis, left knee (principal); F17.200 Nicotine dependence, unspecified, uncomplicated; F41.9 Anxiety disorder, unspecified; J45.909 Unspecified asthma, uncomplicated; K21.9 Gastro-esophageal reflux disease without esophagitis; I10 Essential (primary) hypertension
CPT/HCPCS: 73564; 99213; G0463

== ENCOUNTER 2021-03-10 14:39 | Emergency (ER) | payer OTHER, SELFPAY ==
--- NOTE | ~2021-03-10 | US_ITS ---
EXAMINATION: US venous doppler [facility] DATE: 03/10/2021 15:37 INDICATION: Left lower limb pain TECHNIQUE: Case scale images without and with compression and Doppler images of the left lower extrem ity veins were obtained. COMPARISON: None FINDINGS: The left common femoral vein, profunda femoral vein, femoral vein, popliteal vein, peroneal trunk, posterior tibial veins, and greater saphenous vein are patent. The left groin was imaged at t he site of recent procedure and no abnormality is seen. IMPRESSION: 1. Patent left lower extremity veins. No evidence of deep venous thrombosis. Reviewed, dictated and finalized at location A.
[2021-03-10 14:42] VITALS: BP 153/84; PULSE 58; RESP 18; TEMP 36.1; O2SAT 100
--- NOTE | 2021-03-10 15:09 | ECG_ITS ---
Measurements Intervals [place] Rate: 51 P: 46 MA: 135 QRS: 52 QRSD: 117 T: 29 QT: 435 QTc: 403 Interpretive Statements SINUS BRADYCARDIA INTRAVENTRICULAR CONDUCTION DELAY BORDERLINE ECG Electronically Signed On 03-10-2021 15:58:11 CDT by Homero Chacon D.O.
[2021-03-10] MEDS: diphenhydrAMINE HCl CAP 25 MG CAPSULE PO (15:46)
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
[2021-03-10 16:12] LABS: Basophils Percent Auto 0.7 % (0.2-1.2); Eosinophils Absolute Auto 0.3 K/mm3 (0-0.3); Eosinophils Percent Auto 5.2 % (0-4.4); Hematocrit 42.7 % (42.0-52.0); Hemoglobin 14.6 g/dL (14.0-18.0); Immature Granulocyte Absolute 0.03 K/mm3 (0.00-0.031); Immature Granulocyte Percent A 0.5 % (0-0.5); Lymphocytes Absolute Auto 2.28 K/mm3 (0.9-3.2); Lymphocytes Percent Auto 39.5 % (18.3-44.2); Mean Corpuscular HGB Conc 34.2 g/dl (32-36); Mean Corpuscular Hemoglobin 29.7 pg (26-34); Mean Platelet Volume 9.5 fl (7.4-10.4); Monocytes Absolute Auto 0.7 K/mm3 (0.1-0.6); Monocytes Percent Auto 11.4 % (2.6-8.5); Neutrophils Absolute Auto 2.5 K/mm3 (1.3-6.7); Neutrophils Percent Auto 42.7 % (45.5-73.1); Platelet Count Result 284 k/mm3 (150-375); Red Blood Count 4.91 M/mm3 (4.6-6.20); White Blood Count 5.8 K/mm3 (4.5-10.0)
[2021-03-10 16:23] LABS: Alanine Aminotransferase 80 U/L (4-50); Albumin Level 4.7 g/dL (3.5-5.1); Alkaline Phosphatase 73 U/L (38-126); Anion Gap 10 mmol/L (8-16); Aspartate Amino Transferase 71 U/L (17-59); Bilirubin,Total 0.3 mg/dL (0.2-1.3); Blood Urea Nitrogen 13 mg/dL (9-20); Calcium 9.7 mg/dL (8.4-10.2); Carbon Dioxide 25 mmol/L (22-30); Chloride 98 mmol/L (98-107); Estimated CRCL calculation 160 ml/min; Estimated Glomerular Filt Rate > 60; Glucose 106 mg/dL (65-110); Potassium 4.4 mmol/L (3.4-5.0); Sodium 133 mmol/L (137-145)
[2021-03-10 16:26] LABS: D Dimer 0.27 ug/mL (<0.48)
[2021-03-10 17:30] VITALS: BP 127/83; PULSE 55; RESP 18; O2SAT 99
== END 2021-03-10 17:31 | disposition home or self-care (01) ==
PROVIDERS: Emergency Provider Emergency Medicine
DX: M79.605 Pain in left leg (principal); R41.9 Unspecified symptoms and signs involving cognitive functions and awareness; J45.909 Unspecified asthma, uncomplicated; F31.9 Bipolar disorder, unspecified; K21.9 Gastro-esophageal reflux disease without esophagitis; G40.909 Epilepsy, unspecified, not intractable, without status epilepticus; I10 Essential (primary) hypertension
CPT/HCPCS: 36415; 80053; 85025; 85380; 93005; 93971; 99284; A9270

== ENCOUNTER 2021-09-22 17:40 | Emergency (ER) | payer OTHER, SELFPAY ==
--- NOTE | ~2021-09-22 | XR_ITS ---
EXAMINATION: XR ankle RT min 3V DATE: 09/22/2021 17:53 INDICATION: Lateral right ankle pain TECHNIQUE: Anteroposterior, oblique, mortise, and lateral views of the right ankle were obtained. COMPARISON: None. FINDINGS: Alignment is normal. No acute fracture. Subtle irregularity to the cortical contour at the site of a n old healed fracture at the lateral margin of the talar dome. Joint spaces are well maintained. No ankle joint effusion. Mild soft tissue swelling about the lateral malleolus. IMPRESSION: 1. No acute osseous abnormality. Reviewed, dictated and finalized at location A. RACT LENS GENERATOR
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
[2021-09-22 18:11] VITALS: BP 144/119; PULSE 103; RESP 16; TEMP 37.2; O2SAT 98
== END 2021-09-22 18:51 | disposition home or self-care (01) ==
PROVIDERS: Emergency Provider Nurse Practitioner
DX: S93.401A Sprain of unspecified ligament of right ankle, initial encounter (principal); S96.911A Strain of unspecified muscle and tendon at ankle and foot level, right foot, initial encounter; X50.9XXA Other and unspecified overexertion or strenuous movements or postures, initial encounter; J45.909 Unspecified asthma, uncomplicated; G21.9 Secondary parkinsonism, unspecified; I10 Essential (primary) hypertension; Z87.891 Personal history of nicotine dependence
CPT/HCPCS: 73610; 99213; G0463

== ENCOUNTER 2021-11-04 06:15 | Emergency (ER) | payer OTHER, SELFPAY ==
[2021-11-04 06:19] VITALS: BP 134/92; PULSE 83; RESP 16; TEMP 36.7; O2SAT 98
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
[2021-11-04] MEDS: HYDROcodone/acetaminophen (*CRX) 5-325 MG TABLET 1 TAB PO (06:45)
[2021-11-04 07:09] VITALS: BP 141/75; PULSE 63; RESP 16; O2SAT 99
== END 2021-11-04 07:12 | disposition home or self-care (01) ==
LOC: ANHED 06:51
PROVIDERS: Emergency Provider Emergency Medicine
DX: H60.392 Other infective otitis externa, left ear (principal); J06.9 Acute upper respiratory infection, unspecified; J45.909 Unspecified asthma, uncomplicated; F41.9 Anxiety disorder, unspecified; F31.9 Bipolar disorder, unspecified; F17.290 Nicotine dependence, other tobacco product, uncomplicated; K21.9 Gastro-esophageal reflux disease without esophagitis; I10 Essential (primary) hypertension; Z87.442 Personal history of urinary calculi; Z87.01 Personal history of pneumonia (recurrent)
CPT/HCPCS: 96372; 99283; A9270; J1100

== ENCOUNTER 2023-05-19 13:44 | Emergency (ER) | payer BC, SELFPAY ==
[2023-05-19 13:59] VITALS: BP 121/84; PULSE 79; RESP 16; TEMP 36.9; O2SAT 98
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
== END 2023-05-19 15:18 | disposition home or self-care (01) ==
PROVIDERS: Emergency Provider Nurse Practitioner Family
DX: J40 Bronchitis, not specified as acute or chronic (principal); J02.0 Streptococcal pharyngitis; I10 Essential (primary) hypertension; Z79.899 Other long term (current) drug therapy; Z87.891 Personal history of nicotine dependence
CPT/HCPCS: 87081; 87147; 87880; 99213; G0463

== ENCOUNTER 2023-06-30 11:06 | Emergency (ER) | payer BC, SELFPAY ==
[2023-06-30 11:27] VITALS: BP 120/88; PULSE 78; RESP 16; TEMP 37.2; O2SAT 99
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
== END 2023-06-30 12:08 | disposition home or self-care (01) ==
PROVIDERS: Nurse Practitioner; Emergency Provider Registered Nurse
DX: J40 Bronchitis, not specified as acute or chronic (principal); Z20.822 Contact with and (suspected) exposure to COVID-19; J45.909 Unspecified asthma, uncomplicated; K21.9 Gastro-esophageal reflux disease without esophagitis; I10 Essential (primary) hypertension; F17.290 Nicotine dependence, other tobacco product, uncomplicated
CPT/HCPCS: 87426; 87804; 99213; C9803; G0463

== ENCOUNTER 2023-09-03 06:19 | Emergency (ER) | payer OTHER, BC, MEDICAID, SELFPAY ==
[2023-09-03] VITALS (15 sets, daily range): BP systolic 129–136; BP diastolic 78–88; PULSE 67–84; RESP 13–35; TEMP 36.8; O2SAT 97–100
--- NOTE | ~2023-09-03 | XR_ITS ---
XR chest 1V portable 09/03/2023 07:16 Indication: Cough Procedure: AP portable chest Comparison: Comparison to multiple prior studies sequentially, with oldest reviewed study dated 07/07. Findings: Cardiomegaly. Mild pulmonary vascular congestion. No focal pneumonia, pleural effusion or p neumothorax. Impression: 1: Cardiomegaly with mild pulmonary vascular congestion. Reviewed, dictated and finalized at location A. ANICAL PRESS OPERATOR Impression: 1: Cardiomegaly with mild pulmonary vascular congestion.
[2023-09-03 07:16] LABS: Influenza A QL RT-PCR Negative (Negative); Influenza B QL RT-PCR Negative (Negative); RSV RNA, RT-PCR Negative (Negative); SARS-CoV-2 RNA PCR Negative (Negative)
--- NOTE | 2023-09-03 07:26 | ECG_ITS ---
Measurements Intervals Martin Rate: 69 P: 40 IN: 136 QRS: 42 QRSD: 116 T: 39 QT: 393 QTc: 423 Interpretive Statements SINUS RHYTHM FREQUENT VENTRICULAR PREMATURE COMPLEXES INTRAVENTRICULAR CONDUCTION DELAY ABNORMAL ECG COMPARED TO ECG 03/10/2021 15:47:34 SINUS RHYTHM NOW PRESENT VENTRICULAR ECTOPICS NOW PRESENT Electronically Signed On 09-03-2023 8:16:51 HOGSHEAD OPENER by Homero Chacon D.O.
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
[2023-09-03 08:02] LABS: Basophils Absolute Auto 0.1 K/mm3 (0.0-0.1); Basophils Percent Auto 0.6 % (0.2-1.2); Eosinophils Absolute Auto 0.2 K/mm3 (0-0.3); Eosinophils Percent Auto 1.4 % (0-4.4); Hematocrit 39.1 % (42.0-52.0); Hemoglobin 13.3 g/dL (14.0-18.0); Immature Granulocyte Absolute 0.17 K/mm3 (0.00-0.031); Immature Granulocyte Percent A 1.5 % (0-0.5); Lymphocytes Absolute Auto 1.95 K/mm3 (0.9-3.2); Lymphocytes Percent Auto 17.6 % (18.3-44.2); Mean Corpuscular Hemoglobin 30.7 pg (26-34); Mean Corpuscular Volume 90.3 fl (80-100); Mean Platelet Volume 9.9 fl (7.4-10.4); Monocytes Absolute Auto 0.9 K/mm3 (0.1-0.6); Monocytes Percent Auto 7.9 % (2.6-8.5); Neutrophils Absolute Auto 7.9 K/mm3 (1.3-6.7); Platelet Count Result 340 k/mm3 (150-375); Red Blood Count 4.33 M/mm3 (4.6-6.20); Red Cell Distribution Width 11.9 % (11.5-14.5); White Blood Count 11.1 K/mm3 (4.5-10.0)
[2023-09-03 08:04] LABS: Alanine Aminotransferase 43 U/L (6-50); Albumin Level 3.9 g/dL (3.5-5.1); Alkaline Phosphatase 56 U/L (38-126); Anion Gap 10 mmol/L (8-16); Aspartate Amino Transferase 25 U/L (17-59); Bilirubin,Total 0.3 mg/dL (0.2-1.3); Blood Urea Nitrogen 8 mg/dL (9-20); Calcium 8.7 mg/dL (8.4-10.2); Carbon Dioxide 21 mmol/L (22-30); Chloride 110 mmol/L (98-107); Estimated CRCL calculation 169 ml/min; Estimated Glomerular Filt Rate > 60; Glucose 128 mg/dL (65-110); Potassium 4.1 mmol/L (3.4-5.0); Sodium 141 mmol/L (137-145)
[2023-09-03 08:13] LABS: NT Pro B Type Natriuretic Pept 106 pg/mL (19.9-100)
[2023-09-03] MEDS: HYDROcodone/acetaminophen (*CRX) 5-325 MG TABLET 1 TAB PO (09:08)
== END 2023-09-03 09:12 | disposition home or self-care (01) ==
PROVIDERS: Emergency Medicine; Emergency Provider Emergency Medicine
DX: R05.9 Cough, unspecified (principal); R09.89 Other specified symptoms and signs involving the circulatory and respiratory systems; Z20.822 Contact with and (suspected) exposure to COVID-19; I10 Essential (primary) hypertension; J45.909 Unspecified asthma, uncomplicated; K21.9 Gastro-esophageal reflux disease without esophagitis; F41.9 Anxiety disorder, unspecified; F31.9 Bipolar disorder, unspecified; Z87.01 Personal history of pneumonia (recurrent); F17.290 Nicotine dependence, other tobacco product, uncomplicated
CPT/HCPCS: 36415; 71045; 80053; 83880; 85025; 87637; 93005; 99283; A9270

== ENCOUNTER 2025-03-17 09:24 | Emergency (ER) | payer MEDICAID, SELFPAY ==
[2025-03-17 09:32] VITALS: BP 135/84; PULSE 70; RESP 16; TEMP 36.8; O2SAT 98
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
[2025-03-17] MEDS: dexAMETHasone SOD PHOS INJ 10 MG/ML 1 ML VIAL IM (10:01)
== END 2025-03-17 10:10 | disposition home or self-care (01) ==
PROVIDERS: Emergency Provider Nurse Practitioner Family; PCP Emergency Medicine
DX: R21 Rash and other nonspecific skin eruption (principal); I10 Essential (primary) hypertension; K21.9 Gastro-esophageal reflux disease without esophagitis; J45.909 Unspecified asthma, uncomplicated; Z87.891 Personal history of nicotine dependence
CPT/HCPCS: 96372; 99213; G0463; J1100

== ENCOUNTER 2025-05-29 14:12 | Outpatient (CLI) | payer OTHER, SELFPAY ==
--- NOTE | ~2025-05-29 | CT_ITS ---
EXAMINATION: CT soft tissue neck wo con DATE: 05/29/2025 14:29 INDICATION: Localized swelling behind left ear. TECHNIQUE: Computed tomography (CT) of the neck was performed without intravenous contrast. Automated exposure control and iterative reconstruction technique were employed. The dose-length product was 681.61 mGy-cm. COMPARISON: CT cervical spine 08/26/20 FINDINGS: There is mild bilateral high internal jugular chain lymphadenopathy. For example, left jugulodigastric node measures 2.2 x 1.6 cm. There are mucous retention cysts in the maxillary sinuses. The mastoid air cells are normal. The major salivary glands are normal. There are carious lesions of teeth 2 and 15. There is kyphosis and mild spondylosis of cervical spine. IMPRESSION: 1. Carious lesions of teeth 2 and 15. 2. Mild bilateral high internal jugular chain lymphadenopathy, likely reactive. Reviewed, dictated and finalized at location E.
--- OUTSIDE RECORDS SUMMARY | 2025-05-29 15:18 | XMS_ITS | Encounter Summary ---
Author Organization [facility] Address [address] [place] [address] Phone Care Team Providers Care Rn Outpatient Surgery Name Role Phone John Claros MD Unavailable [phone] Unknown, Notinfile Primary Care Provider Unavail able Encounter Details Date Type Department Care Team (Late st Contact Info) Description 05/01/2025 Telephone [facility] Medicine Cardiology [address] 8[address] [place] [address] [place] [address] Moriah Enciso Social History Tobacco Use Types Packs/Day Years Used Date Smoking Tobacco: Every Day Vaping Smokeless Tobacco: Never Comments:vapor at present Alcohol Use Standard Drinks/Week Comments Not Currently 0 (1 standard drink = 0.6 oz pur e alcohol) AUDIT-C Answer Date Recorded Q1: How often do you have a drink containing alc ohol? Never 02/26/2021 Average Number of Drinks Not on file 021 Frequency of Binge Drinking Not on file 02/05 Sex and Gender Information Value Date Recorded Sex Assigned at Not on file Legal Sex Male 3:02 PM CDT Gender Identity Not on file Sexual Orientation Not on file documented as of this encounter Miscellaneous Notes * Telephone Encounter - Cherie Chandra - 05/07/2025 8:09 AM CDT UTR Letter Sent. * Telephone Encounter - Moriah Enciso - 05/01/2025 8:37 AM CDT [facility] CALLING IN REGARDS TO PT NEEDING REFILL FOR PROPANOLOL AND MAGNESIUM OXIDE documented in this encounter Plan of Treatment Not on file documented as of this encounter Visit Diagnoses Not on filedocumented in this encounter Care Teams Rn Outpatient Surgery Relationship Specialty Start Date End Date Unknown, Notinfile PCP - General 06/29/21 John Claros MD [address] [place] [address] Consulting Physician Cardiology 02/27/21 documented as of this encounter
--- OUTSIDE RECORDS SUMMARY | 2025-05-29 15:18 | XMS_ITS | Encounter Summary ---
Author Organization [facility] Address [address] [place] [address] Care Team Providers Care Pneumatic Riveter Name Role Phone Anthony Valdez MD Primary Care Provider [phone] Anthony Valdez MD Primary Care Provider [phone] John Claros MD Unavailable [phone] Unknown, Notinfile Primary Care Provider Unavail able Encounter Details Date Type Department Care Team (Late st Contact Info) Description 12/19/2016 Orders Only [facility] ProviderEmma MD [address] [place] [id number] Social History Tobacco Use Types Packs/Day Years Used Date Smoking Tobacco: Never Assessed Sex and Gender Information Value Date Recorded Sex Assigned at Not on file Legal Sex Male 3:02 PM CDT Gender Identity Not on file Sexual Orientation Not on file documented as of this encounter Plan of Treatment Not on file documented as of this encounter Procedures Procedure Name Priority Date/Time Associated Diagnosis Comments CARDIOLOGY REPORT 12/19/2016 documented in this encounter Results * CARDIOLOGY REPORT (12/19/2016) Anatomical Region Laterality Modality Other Narrative 12/19/2016 Ordered by an unspecified provider. Historical Provider [facility] Final Result documented in this encounter Visit Diagnoses Not on filedocumented in this encounter Care Teams Pneumatic Riveter Relationship Specialty Start Date End Date Anthony Valdez MD [address] [place] [id number] PCP - General 12/16/16 02/25/21 Anthony Valdez MD [address] [place] [address] PCP - General 02/26/21 06/28/21 Unknown, Notinfile PCP - General 06/29/21 John Claros MD [address] [place] [address] Consulting Physician Cardiology 02/27/21 documented as of this encounter
--- OUTSIDE RECORDS SUMMARY | 2025-05-29 15:18 | XMS_ITS | Clinical Summary ---
Author Organization [facility] Address [address] [place] [address] Care Team Providers Care Drawer In Name Role Phone Anthony Valdez MD Primary Care Provider [phone] Source Comments [facility],non-owned Affiliates and Associated Physician Practices is amultiple site organization consisting of ambulatory clinics and hospital sitesin [place], [place], [place] and [place]. This disclosure is being madepursuant to the Care Everywhere program and may not contain all information available regarding this patient. Last updated 18.[facility] Allergies Active Allergy Reactions Criticality Noted Date Comments Contrast-Gadolinium Agents For Mri 0 04/29/2017 Medications * Be aware that medications may not be up to date on this document. Alwaysverify current medications with the patient. 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 Gender Identity Not on file Sexual Orientation Not on file Last Filed Vital Signs Vital Sign Reading Time Taken Comments Blood Pressure 142/84 04/29/2017 2:09 PM CDT Pulse 65 04/29/2017 2:09 PM CDT Temperature 36.8 C (98.3 F) 04/29/2017 2:09 PM CDT Respiratory Rate 16 04/29/2017 2:09 PM CDT Oxygen Saturation 98% 04/29/2017 2:09 PM CDT Inhaled Oxygen Concentration - - Weight 114.8 kg (253 lb) 04/29/2017 2:09 PM CDT Height 180.3 cm (5' 11) 04/29/2017 2:09 PM CDT Body Mass Index 35.29 04/29/2017 2:09 PM CDT Plan of Treatment Health Maintenance Due Date Last Done Comments HIV SCREENING 2004 HEPATITIS C SCREENING 10/21/2007 DTAP/TDAP/TD VACCINES (1 - Tdap) 2008 HEPATITIS B VACCINE (1 of 3 - 19+ 3-dose series) 2008 HPV VACCINE (1 - 3-dose SCDM series) 2016 DEPRESSION SCREENING 08/07/2024 COVID-19 VACCINE (1 - 2023-2 5 season) 2025 INFLUENZA VACCINE (#1) 2025 ZOSTER VACCINE (1 of 2) 10/26/2039 HIB VACCINE Aged Out No longer eligi ble based on patient's age to complete this topic MENINGOCOCCAL (Group B) VACC INE SHARED DECISION-MAKING Aged Out No longer eligibl e based on patient's age to complete this topic MENINGOCOCCAL GROUPS A/C/Y/W VACCINE Aged Out No longer eligible b ased on patient's age to complete this topic PNEUMOCOCCAL VACCINE Aged Out No long er eligible based on patient's age to complete this topic Insurance Care Teams Drawer In Relationship Specialty Start Date End Date Anthony Valdez MD PCP - General Family Medicine 04/29/17
--- OUTSIDE RECORDS SUMMARY | 2025-05-29 15:18 | XMS_ITS | Clinical Summary ---
Author Organization [facility] Address [address] [place] [address] Care Team Providers Care Cheese Cutter Name Role Phone John Claros MD Unavailable [phone] Unknown, Notinfile Primary Care Provider Unavail able Allergies Active Allergy Reactions Criticality Noted Date Comments Dye Shortness of breath High 05/22/2017 Gadoversetamide Shortness of breath High 04/29/2017 Contrast for MRI caused asthma to flair,difficulty breathing Medications albuterol HFA (PROVENTIL HFA,VENTOLIN HFA,PROAIR HFA) 90 mcg/actuation inhaler Inhale 2 puffs every 6 (six) hours as needed for wheezing. Active Advair Diskus 250-50 mcg/dose diskus inhaler Inhale 1 puff 2 (two) times a day 1 Active propranoloL (INDERAL) 10 mg tablet Take 10 mg by mouth 3 (three) times a day Active tiZANidine (ZANAFLEX) 4 mg tablet 1 Active montelukast (SINGULAIR) 10 mg tablet Take by mouth daily 1 Active Combivent Respimat 20-100 mcg/actuation inhaler 1 Active fluticasone propionate (FLONASE) 50 mcg/actuation nasal spray Administer into affected nostril(s) 1 Active Rexulti 0.5 mg tablet Take 1 tablet (0.5 mg total) by mouth daily 5 Active vilazodone (VIIBRYD) 40 mg tablet Take 1 tablet (40 mg total) by mouth every morning Active ALPRAZolam (XANAX) 1 mg tablet Take 1 tablet (1 mg total) by mouth 2 (two) times a day as needed for anxiety Active Active Problems Problem Noted Date Diagnosed Date Generalized anxiety disorder 01/29/2021 Chest pain 04/29/2017 Assessment & Plan (04/29/2017 12:02 PM CDT): The patient has chest discomfort that sounds musculoskeletal in nature. His 12 lead ECG does not demonstrate significant changes, and his symptoms involved greater than 3 weeks post ablation, so I do not believe that pericarditis is likely. I have recommended that he have an echocardiogram performed to ensure that his heart remains structurally and functionally normal. I recommended that he contact Dr. Alexandra, his data base administrator, to determine if additional evaluation for his chest discomfort is necessary. As I believe that this is most likely musculoskeletal, I prescribed the patient a limited supply of hydrocodone/acetaminophen for symptomatic relief while his evaluation is underway. The patient will follow-up with me in 6 months for an office visit and twelve- lead ECG. PVC (premature ventricular contraction) 03/23/20 Assessment & Plan (09/14/2018 2:41 PM BRAKE MECHANIC): The patient has palpitations. This may be related to his previous diagnosis of ventricular ectopy. I previously asked the patient to wear an event recorder for 14 days. However, he only wore this for a total of less than 12 hr. Incidentally, during the monitoring interval, the patient was found to have very few PVCs and only sinus tachycardia. Before we can make an informed decision about the effectiveness of antiarrhythmic therapy (either pharmacologic or ablated), I need a more thorough assessment of the patient's present ventricular arrhythmia burden. I therefore recommended that he wear the event recorder for the full 14 days. Assessment & Plan (03/23/2017 12:51 PM CDT): The patient is status post a PVC ablation, but has experienced recurrence. He is interested in pursuing repeat ablation. We again discussed the risks and benefits. My office will make the appropriate arrangements. I have recommended that he remain off amiodarone in order to avoid suppression of ventricular ectopy at the time of his study. VT (ventricular tachycardia) 02/01/2017 Assessment & Plan (01/04/2019 3:19 PM CDT): The patient has outflow tract tachycardia. In October 2018, he underwent repeat ablation, during which his PVC focus was mapped to the right coronary cusp. Ablation was judged to be successful. The patient has since done rather well, reporting no palpitations or tachycardia. He is off medications. We will continue to monitor and follow closely, and manage new / recurrent arrhythmia expectantly. If his ventricular arrhythmia recurs again, epicardial mapping and ablation may be considered. The patient will follow-up with me in 12 months for an office visit and twelve- lead ECG. Assessment & Plan (08/10/2018 2:33 PM BRAKE MECHANIC): Patient has a history of idiopathic VT/PVCs. Ablation was performed in the commisure the RCC/[facility]. The patient has been found to have recurrent PVCs, but no evidence of tachycardia. I recommended that he wear a 24 hr Holter monitor to quantify his present PVC burden. As he has done poorly with medical therapy in the past, if he has recurrence, repeat EP study/ablation can be considered if he has a significant amount of ectopic beats. Assessment & Plan (04/29/2017 11:54 AM CDT): The patient is status post ablation for idiopathic ventricular tachycardia/PVCs. Successful site of ablation appeared to be at the commisure the right and left coronary cusps. He has not experienced recurrent symptoms compatible with PVCs. I recommend continued expectant management. Of note, the patient's procedure and diagnosis of PVCs should no longer impede his ability to return to work. However, his chest discomfort, which involved recently, he may require additional cardiological evaluation. Assessment & Plan (02/01/2017 4:01 PM CDT): A the patient has highly symptomatic idiopathic ventricular tachycardia. He is presently off amiodarone and metoprolol. The patient would like to avoid medications, and is therefore interested in radiofrequency catheter ablation. We discussed the indications, risks, and benefits for ablation for VT. The patient understands that if we are unable to induce his arrhythmia, we may be unsuccessful an ablating his tachycardia. He is agreeable, and would like to make preparations to proceed. Encounters Date Type Department Care Team Description 05/05/2025 Orders Only [facility] [place] [place] Cardiology [address] [place] [address] [place] [id number] Maciej Danielson MD PVC (premature ventricular contraction) (Primary Dx) 05/05/2025 Orders Only [facility] [place] [place] [facility] [address] [place] [address] [place] [id number] Maciej Danielson MD PVC (premature ventricular contraction) (Primary Dx) 05/05/2025 Telephone [facility] [place] [place] [facility] [address] [place] [address] [place] [phone] Tawny Silva RN 05/01/2025 Telephone [facility] [place] [place] [facility] [address] [place] [address] [place] [phone] Moriah Enciso from Last 3 Months Surgical History Surgery Date Site/Laterality Comments HAND SURGERY Right x 2 CARDIAC ELECTROPHYSIOLOGY MA PPING AND ABLATION ablation pvc's x 2 procedures ADENOIDECTOMY FRACTURE SURGERY 10/2016 Medical History Medical History Date Comments Asthma Syncope Insomnia PVC's (premature ventricular contractions) Palpitations Arrhythmia VT (ventricular tachycardia) Anxiety 08/07/2008 Seizures (HCC) 08/07/2008 Depression 08/07/2008 Family History Medical History Relation Name Comments Cancer Father Gene Depression Father Gene Heart attack Father Gene Hypertension Father Gene Asthma Mother Zuleima Depression Mother Zuleima Early Mother Zuleima Hypertension Mother Zuleima Stroke Paternal Grandfather Bradley Cancer Paternal Grandmother Ada Relation Name Status Comments Father Gene Mother Zuleima Paternal Grandfather Bradley Alive Paternal Grandmother Ada Alive Social History Tobacco Use Types Packs/Day Years Used Date Smoking Tobacco: Every Day Vaping Smokeless Tobacco: Never Tobacco Cessation:Ready to Q uit: Not Asked; Counseling Given: Not Answered Comments:vapor at present Alcohol Use Standard Drinks/Week [...] on file Sexual Orientation Not on file Obstetrics History Last Filed Vital Signs Vital Sign Reading Time Taken Comments Blood Pressure 140/90 11/04/2024 9:17 AM CDT Pulse 75 11/04/2024 9:17 AM CDT Temperature 36.7 C (98 F) 02/27/2021 11:30 AM CDT Respiratory Rate 16 02/27/2021 11:30 AM CDT Oxygen Saturation 100% 02/27/2021 11:30 AM CDT Inhaled Oxygen Concentration - - Weight 132.5 kg (292 lb) 11/04/2024 9:17 AM CDT Height 180.3 cm (5' 11) 11/04/2024 9:17 AM CDT Body Mass Index 40.73 11/04/2024 9:17 AM CDT Plan of Treatment Health Maintenance Due Date Last Done Comments Depression Screening 1989 Hepatitis C Screening 1989 DTaP/Tdap/Td Vaccine (1 - Tdap) 2000 Varicella Vaccines (1 of 2 - 13+ 2-dose series) 2002 Hepatitis B Screening 10/26/2007 Regular Well Visit/Exam 18-64 10/26/2007 Pneumococcal vaccine <65 (1 of 2 - PCV) 2008 HPV Vaccines (1 - 3-dose SCDM series) 2016 Influenza Vaccine (#1) 2025 Medical Devices Implanted Type Area Vault Maker Device Identifier Shelf Expiration Date Model / Serial / Lot [employer] [id number] Angio-Seal Vip [employer]dek-Plus 8fr .038in 70cm Hemostatic Latex Free - [id number] Implanted:Qty: 1 on 10/10/2018 by Lei Hinojosa MD at [facility] [employer] 11/04/2018 [id number] / / [id number] Insurance [facility] Member Subscriber Plan / Payer (Ef fective 2016-Present) Name:Rashard Morrow Christine Relation to Subscriber:Self Name:Rashard Morrow Payer ID:[id number] Type:Not on file Address: [address] [place] [address] [employer] IDNY IDNY Advance Directives For more information, please contact: [phone] * Full Code (Latest Code Status on File) Date Activated Date Inactivated Comments 10/10/2018 1:44 PM 10/12/2018 1:54 PM Care Teams Cheese Cutter Relationship Specialty Start Date End Date Unknown, Notinfile PCP - General 06/29/21 John Claros MD [address] [place] [address] Consulting Physician Cardiology 02/27/21
--- OUTSIDE RECORDS SUMMARY | 2025-05-29 15:18 | XMS_ITS | Encounter Summary ---
Author Organization [facility] Address [address] [place] [address] Care Team Providers Care Engagement Quality Consultant Name Role Phone Anthony Valdez MD Primary Care Provider Anthony Valdez MD Primary Care Provider [phone] John Claros MD Unavailable [phone] Unknown, Notinfile Primary Care Provider Unavail able Encounter Details Date Type Department Care Team (Late st Contact Info) Description 12/16/2016 Orders Only [facility] ProviderEmma MD [address] [place] [id number] Social History Tobacco Use Types Packs/Day [...] Priority Date/Time Associated Diagnosis Comments CARDIOLOGY REPORT 12/16/2016 documented in this encounter Results * CARDIOLOGY REPORT (12/16/2016) Anatomical Region Laterality Modality Other Narrative 12/16/2016 Ordered by an unspecified provider. Historical Provider [facility] Final Result documented in this encounter Visit Diagnoses Not on filedocumented in this encounter Care Teams Engagement Quality Consultant Relationship Specialty Start Date End Date Anthony Valdez MD [address] [place] [id number] PCP - General 12/16/16 02/25/21 Anthony Valdez MD [address] [place] [address] PCP - General 02/26/21 06/28/21 Unknown, Notinfile PCP - General 06/29/21 John Claros MD [address] [place] [address] Consulting Physician Cardiology 02/27/21 documented as of this encounter
--- OUTSIDE RECORDS SUMMARY | 2025-05-29 15:18 | XMS_ITS | Encounter Summary ---
Author Organization [facility] Address [address] [place] [address] Care Team Providers Care Cook Cashier Food Prep Name Role Phone Anthony Valdez MD Primary Care Provider [phone] Anthony Valdez MD Primary Care Provider [phone] John Claros MD Unavailable [phone] Unknown, Notinfile Primary Care Provider Unavail able Encounter Details Date Type Department Care Team (Late st Contact Info) Description 12/15/2016 Orders Only [facility] ProviderEmma MD [address] [place] [address] Social History Tobacco Use Types Packs/Day [...] Priority Date/Time Associated Diagnosis Comments CARDIOLOGY REPORT 12/15/2016 CARDIOLOGY REPORT 12/15/2016 documented in this encounter Results * CARDIOLOGY REPORT (12/15/2016) Anatomical Region Laterality Modality Other Narrative 12/15/2016 Ordered by an unspecified provider. Historical Provider [facility] Final Result * CARDIOLOGY REPORT (12/15/2016) Anatomical Region Laterality Modality Other Narrative 12/15/2016 Ordered by an unspecified provider. us Historical Provider [facility] Final Result documented in this encounter Visit Diagnoses Not on filedocumented in this encounter Care Teams Cook Cashier Food Prep Relationship Specialty Start Date End Date Anthony Valdez MD [address] [place] [address] PCP - General 12/16/16 02/25/21 Anthony Valdez MD [address] [place] [address] PCP - General 02/26/21 06/28/21 Unknown, Notinfile PCP - General 06/29/21 John Claros MD [address] [place] [address] Consulting Physician Cardiology 02/27/21 documented as of this encounter
== END 2025-05-29 14:13 | disposition home or self-care (01) ==
PROVIDERS: PCP Emergency Medicine; Visit Provider Emergency Medicine
DX: R59.1 Generalized enlarged lymph nodes (principal); K02.9 Dental caries, unspecified
CPT/HCPCS: 70490